=== PATIENT | male | born 1970 | race Hispanic/Latino ===

== ENCOUNTER 2017-07-12 07:47 | Day surgery (SDC) | payer OTHER, SELFPAY ==
[2017-07-10 10:45] VITALS: BP 149/96
[2017-07-10 11:11] LABS: BASOPHILS % (AUTO) 0.9 % (0.0-5.0); EOSINOPHILS % (AUTO) 3.4 % (0.0-8.0); HEMATOCRIT 42.2 % (42-54); LYMPHOCYTES % (AUTO) 31.5 % (21.0-51.0); MEAN CORPUSCULAR HEMOGLOBIN 30.6 pg (27.0-33.0); MEAN CORPUSCULAR HGB CONC 34.1 g/dL (32.0-36.0); MEAN CORPUSCULAR VOLUME 89.6 fL (79-99); MONOCYTES % (AUTO) 8.9 % (3.0-13.0); NEUTROPHILS % (AUTO) 55.3 % (40.0-77.0); NUCLEATED RED BLOOD CELLS 0.1 % (0.0-0.19); PLATELET COUNT (AUTO) 136 K/uL (130-400); RED BLOOD CELL COUNT(AUTO) 4.71 MIL/uL (4.50-6.20); WHITE BLOOD COUNT (AUTO) 4.8 K/uL (4.8-10.8)
[2017-07-10 11:14] LABS: POTASSIUM 3.8 mmol/L (3.5-5.1)
[2017-07-10 11:29] LABS: INR 0.95 (0.85-1.15); PARTIAL THROMBOPLASTIN TIME 25.5 SEC (26.3-35.5)
[2017-07-12] VITALS (15 sets, daily range): BP systolic 128–154; BP diastolic 61–105
[~2017-07-12] VITALS: Ht 175.3 cm; Wt 117.5 kg
[2017-07-12] MEDS: CEFAZOLIN SODIUM 1 GM VIAL IVP SCH (05:00)
[~2017-07-12 07:47] MED LIST: ATOR10TA69 PO; DICL50TA9 PO; HYDR12.54 PO; LISI40TA4 PO
[2017-07-12] MEDS ORDERED: LACTATED RINGERS 1000ML 1,000 ML IV ONE (08:19)
[2017-07-12] MEDS ORDERED: BACITRACIN 28.4 GM OINT TP ONE (09:55)
[2017-07-12] MEDS ORDERED: BUPIVACAINE/PF 0.25% 30ML VIAL IJ ONE (09:55)
[2017-07-12] MEDS ORDERED: FENTANYL CITRATE PF 50 MCG/1 ML 2ML VIAL ONE (10:00)
[2017-07-12] MEDS ORDERED: PROPOFOL 10 MG/ML 20ML VIAL IV ONE (10:01)
[2017-07-12] MEDS ORDERED: MIDAZOLAM HCL 1 MG/ML 2ML VIAL ONE (10:01)
[2017-07-12] MEDS ORDERED: EPHEDRINE SULFATE 50 MG/ML AMPULE ONE (10:18)
[2017-07-12] MEDS ORDERED: FENTANYL CITRATE PF 50 MCG/1 ML 5ML AMP IV ONE (10:30)
[2017-07-12] MEDS ORDERED: DiphenhydrAMINE HCL 50 MG/ML VIAL ONE (11:36)
[2017-07-13] MEDS: CEFAZOLIN SODIUM 1 GM VIAL IVP SCH (10:15)
== END 2017-07-12 13:05 | disposition home or self-care (01) ==
LOC: DAH 07:47
PROVIDERS: ATTEND Urology
DX: N47.1 Phimosis (principal); I10 Essential (primary) hypertension; E78.5 Hyperlipidemia, unspecified; E66.01 Morbid (severe) obesity due to excess calories; Z98.890 Other specified postprocedural states
CPT/HCPCS: 36415; 54150; 80048; 82360; 85025; 85610; 85730; 88300; 93005; A4218; A4600; A4606; A4930; J0690; J1200; J2250; J2704; J3010 ×2; J3490 ×2; J7120